=== PATIENT | male | born 1990 | race African-American/Black ===

== ENCOUNTER 2023-02-09 15:29 | Emergency (ER) | payer BC, SELFPAY ==
[2023-02-09 15:47] VITALS: BP 108/77; PULSE 78; RESP 16; TEMP 37.2; O2SAT 98
--- NOTE | 2023-02-09 15:56 | ED.URI ---
HPI - URI/Sore Throat General Chief Complaint: Upper Respiratory Infection Stated Complaint: head pain; sinus congestion; productive cough Time Seen by Provider: 02/09/23 15:56 Source: patient Mode of arrival: ambulatory Limitations: no limitations History of Present Illness HPI Narrative: 32-year-old male presents complaint of nasal congestion, headache, sinus pressure, sore throat, fatigue, chills for 3 days. Afebrile. Is taking [id number] Tylenol to treat his symptoms. No chest pain or shortness breath. All systems reviewed and negative except as noted above. Related Data Allergies Allergy/AdvReac Type Severity Reaction Status Date / Time No Known Allergies Allergy Verified 02/09/23 15:42 Review of Systems Review of Systems: CONSTITUTIONAL: Denies fever . Reports chills, or sweats. EYES: Denies visual changes, redness, or discharge. ENT: reports rhinorrhea, congestion, sore throat. Denies otalgia. CARDIOVASCULAR: Denies chest pain, palpitations, or edema. RESPIRATORY: Denies cough or dyspnea. GASTROINTESTINAL: Denies abdominal pain, nausea, vomiting, or diarrhea. GENITOURINARY: Denies dysuria or hematuria. SKIN: Denies rash or itching. MUSCULOSKELETAL: Denies back pain, joint pain, or myalgia. NEUROLOGIC: Denies headache, numbness, or weakness. PSYCHIATRIC: Denies anxiety or depression. All other systems reviewed are negative, except as documented in HPI. PMFSH Comments At time of signature, agree with nursing past medical, surgical, social and family history. There is no relevant family history pertinent to the presenting complaint. Exam Narrative: GENERAL: This is a well-nourished, well-developed patient. Patient ill-appearing but in no distress. HEAD: normocephalic, atraumatic. EYES: PERRL. Sclera clear/white. Vision is grossly intact. EARS: External ears normal, auditory canals clear and without drainage, TMs normal without perforation. Hearing grossly intact. NOSE: External nose normal with Clear nasal drainage, erythema and swelling to both nares. THROAT: Mucous membranes moist, Mild erythema with mild swelling. No exudates. NECK: Neck supple, non-tender without lymphadenopathy, masses or thyromegaly. CARDIOVASCULAR: Regular rate and rhythm without murmurs, gallops, or rubs. RESPIRATORY: Clear to auscultation. Breath sounds equal bilaterally. No wheezes, rales, or rhonchi. SKIN: warm, Dry, intact with no suspicious lesions or rash, good texture and turgor. NEURO: awake, alert, and oriented to person, place and time. There were no obvious focal neurologic abnormalities. EXTREMITIES: No joint tenderness, effusion, or edema noted. Course Course Level of Care: Express Care Visit Vital Signs Vital signs: Vital Signs Temperature 37.2 C 02/09/23 15:47 Pulse Rate 78 02/09/23 15:47 Respiratory Rate 16 02/09/23 15:47 Blood Pressure 108/77 02/09/23 15:47 Pulse Oximetry 98 02/09/23 15:47 Oxygen Delivery Room Air 02/09/23 15:47 Temperature 37.2 C 02/09/23 16:14 Pulse Rate 78 02/09/23 16:14 Respiratory Rate 16 02/09/23 16:14 Blood Pressure 108/77 02/09/23 16:14 Pulse Oximetry 98 02/09/23 16:14 Oxygen Delivery Room Air 02/09/23 16:14 Reviewed MDM - URI/Sore Throat MDM Narrative Medical decision making narrative: Patient is aware of diagnosis, understands and agrees to treatment plan. Anticipatory guidance given. Patient agrees to follow-up as directed and is aware of reasons to seek care at the emergency department. Portions of this record may have been created with voice recognition software Lab Data Labs: Strep Screen Presumptive Negative *(Reference Range: Negative)* Discharge Plan Discharge Clinical Impression: Viral upper respiratory infection Patient Disposition: Home, Self-Care Condition: Stable Instructions: Upper Respiratory Infection (ED) Additional I
[2023-02-09 16:14] VITALS: BP 108/77; PULSE 78; RESP 16; TEMP 37.2; O2SAT 98
== END 2023-02-09 16:46 | disposition home or self-care (01) ==
PROVIDERS: Emergency Provider Nurse Practitioner Family
DX: J06.9 Acute upper respiratory infection, unspecified (principal); B97.89 Other viral agents as the cause of diseases classified elsewhere; Z20.822 Contact with and (suspected) exposure to COVID-19
CPT/HCPCS: 87081; 87426; 87880; 99203; C9803; G0463

== ENCOUNTER 2023-12-26 13:06 | Emergency (ER) | payer MEDICAID, SELFPAY ==
[2023-12-26 13:08] VITALS: BP 137/100; PULSE 89; RESP 16; TEMP 36.6; O2SAT 99
--- NOTE | 2023-12-26 17:20 | ED.NECK ---
HPI - Neck Pain/Injury General Chief Complaint: Neck Pain/Injury Stated Complaint: right sided neck pain Time Seen by Provider: 12/26/23 14:24 Source: patient Limitations: no limitations History of Present Illness HPI Narrative: Patient is a 33-year-old male presents to the emergency department complaining of neck pain and stiffness. Patient states he woke up with this on Sunday and has been persistent ever since seems like it is getting worse starting to migrate. Patient points to his right lateral posterior neck in regard to where the discomfort is, describes it as an ache, seems to be migrating more inferolaterally, took a [id number] pain medication for without any significant relief. Patient notes that he went to [facility] for this couple days ago and they did a CT scan was told that all look good and this is a muscle spasm and was discharged. Patient states that the pain is worse when he side bends or rotates his neck and other direction. Patient denies fever, urinary const, stool incontinence, history of IV drug use, recent injuries, recent illness, cough, chest pain, difficulty breathing, nausea, vomiting, diarrhea, confusion, numbness, weakness, paresthesias, difficulty swallowing, dysphonia, vision changes. Related Data Allergies Allergy/AdvReac Type Severity Reaction Status Date / Time No Known Allergies Allergy Verified 02/09/23 15:42 Review of Systems Review of Systems: A 10 system review of systems was completed on the patient and is negative except for what is stated in the HPI. Nursing and ancillary documentation was reviewed. PMFSH Comments At time of signature, I have reviewed and agree with nursing past medical, surgical, social and family history unless otherwise noted. Please see the nursing chart for further information. There is no relevant family history pertinent to the presenting complaint. Exam Narrative: CONST: No acute distress. Well nourished. HENMT: Head is normocephalic and atraumatic. Moist mucous membranes. No posterior oropharynx erythema. EYES: No conjunctival icterus, injection, or pallor. PERRL. NECK: No meningeal signs. No palpable cervical lymphadenopathy. Moderate muscle spasm of the right trapezius and to middle scalene and posterior scan. No carotid bruits on auscultation bilaterally. RESP: Able to speak in full sentences. Normal respiratory effort. CTAB. CARDIO: Regular rate. Regular rhythm. 2+ DP and radial pulses bilaterally. GI: Nondistended. No tenderness to palpation. Soft. : No CVA tenderness to palpation. SKIN: No rashes or lesions noted on exposed skin. NEURO: Oriented x3. Moves all extremities. No focal neurological deficits. EXTREM/MSK/BACK: No pedal edema. No midline vertebral tenderness to palpation or step-offs. Patient is limited to 45? of rotation and the neck in both directions secondary to discomfort. PSYCH: Normal affect. Course Vital Signs Vital signs: Vital Signs Temperature 98 F 12/26/23 13:08 Pulse Rate 89 12/26/23 13:08 Respiratory Rate 16 12/26/23 13:08 Blood Pressure 137/100 H 12/26/23 13:08 Pulse Oximetry 99 12/26/23 13:08 Temperature 98 F 12/26/23 13:08 Pulse Rate 89 12/26/23 13:08 Respiratory Rate 16 12/26/23 13:08 Blood Pressure 137/100 H 12/26/23 13:08 Pulse Oximetry 99 12/26/23 13:08 MDM - Neck Pain/Injury MDM Narrative Medical decision making narrative: Patient presents with the above complaint. Initial vitals are remarkable for no significant abnormalities. Physical examination as noted above. Plan discussed: diazepam 2 mg p.o., Toradol 30 mg IM, Tylenol 1 g p.o.. Patient was reassessed at the bedside. No changes in physical exam. Patient is in no acute distress. The patient has remained stable throughout the entire ED visit. Counseled patient regarding potential diagnosis. Anticipatory guidance provided. Patient instructed to follow up with PCP within 1 week.
[2023-12-26] MEDS: diazePAM (*CRX) 2 MG TABLET PO (17:35)
[2023-12-26] MEDS: ACETAMINOPHEN 500 MG TABLET 1000 MG PO (17:36)
[2023-12-26] MEDS: KETOROLAC 30 MG/ML VIAL (*BKC) IM (17:36)
== END 2023-12-26 17:53 | disposition home or self-care (01) ==
PROVIDERS: Emergency Provider Student in an Organized Health Care Education/Training Program
DX: M62.830 Muscle spasm of back (principal); S16.1XXA Strain of muscle, fascia and tendon at neck level, initial encounter; X58.XXXA Exposure to other specified factors, initial encounter
CPT/HCPCS: 96372; 99283; A9270; J1885